=== PATIENT | female | born 1970 | race Caucasian/White ===

== ENCOUNTER 2016-04-11 20:03 | Emergency (ER) | payer MEDICAID ==
[2016-04-11] MEDS ORDERED: BENZONATATE 100 MG CAPSULE PO ONE (20:23)
--- NOTE | 2016-04-11 20:23 | Emergency Department Record ---
History of Present Illness - General Chief Complaint: Cough Stated Complaint: COUGH Time Seen by Provider: 04/11/16 20:16 Source: Patient Mode of Arrival: Ambulatory Limitations: No limitations - History of Present Illness Initial Comments: 45 yo female presents with a cough for about 2 weeks. The cough is worsening at this time. No fevers. She has sinus pressure and discolored sinus drainage. The cough is non productive. She is a smoker. No history of asthma. No sore throat. MD Complaint: Cough Onset/Timin -: Days(s) Severity scale (1-10): 8 Consistency: Constant Improves With: Nothing Worsens With: Other (cough) Associated Symptoms: Cough, Nasal congestion - Related Data Home Medications Medication Instructions Recorded Confirmed Last Taken Multivitamin [Multivitamins] 1 each PO DAILY cap 05/26/15 04/11/16 Unknown Ergocalciferol (Vitamin D2) 3,000 unit PO QOD tab 11/02/15 04/11/16 Unknown [Vitamin D2] Previous Rx's Medication Instructions Recorded Azithromycin [Zithromax] 250 mg PO DAILY #4 tab 04/11/16 Benzonatate [Tessalon] 1 cap PO Q8H PRN #25 cap 04/11/16 Allergies Allergy/AdvReac Type Severity Reaction Status Date / Time Penicillins Allergy Intermediate HIVES Verified 04/11/16 20:07 Travel Screening - Travel/Exposure Within Last 30 Days Have you traveled within the last 30 days?: No - Travel/Exposure Within Last Year Have you traveled outside the [place] in the last year?: No - Additonal Travel Details Have you been exposed to anyone with a communicable illness?: No - Travel Symptoms Symptom Screening: None Review of Systems Constitutional: Denies: Chills, Fever, Malaise, Weakness Eyes: Denies: Eye discharge, Eye pain, Photophobia, Vision change ENT: Reports: Congestion. Denies: Ear pain, Throat pain Respiratory: Reports: Cough. Denies: Dyspnea, Hemoptysis, Stridor, Wheezes Cardiovascular: Denies: Chest pain, Palpitations, Syncope Endocrine: Denies: Fatigue, Polydipsia, Polyuria Gastrointestinal: Denies: Abdominal pain, Diarrhea, Nausea, Vomiting Genitourinary: Denies: Dysuria, Urgency Musculoskeletal: Denies: Arthralgia, Back pain, Myalgia, Neck pain Skin: Denies: Bruising, Change in color, Rash Neurological: Reports: Headache (facial pressure). Denies: Numbness, Tremors, Vertigo, Weakness Psychiatric: Denies: Anxiety Hematological/Lymphatic: Denies: Blood Clots, Easy bleeding, Easy bruising, Swollen glands Past Medical History - SOCIAL HISTORY Smoking Status: Light tobacco smoker (<10/day) Alcohol Use: Rare Drug Use: None - RESPIRATORY Hx Respiratory Disorders: No - CARDIOVASCULAR Hx Cardio Disorders: Yes Comment:: hypercholesteremia - NEURO Hx Neuro Disorders: No - GI Hx GI Disorders: No - Hx Genitourinary Disorders: No - ENDOCRINE Hx Endocrine Disorders: No - MUSCULOSKELETAL Hx Musculoskeletal Disorders: Yes Comment:: degenerative disc disease - PSYCH Hx Psych Problems: No - HEMATOLOGY/ONCOLOGY Hx Hematology/Oncology Disorders: No Family Medical History Any Significant Family History?: No Physical Exam - General General Appearance: Alert, Oriented x3, Cooperative, No acute distress - Head Head exam: Normal inspection - Eye Eye exam: Normal appearance, PERRL. negative: Conjunctival injection - ENT ENT exam: Mucous membranes moist, Normal orophraynx, TM's normal bilaterally. negative: Normal exam Ear exam: Normal external inspection. negative: External canal tenderness Nasal Exam: Discharge, Sinus tenderness. negative: Active bleeding, Dried blood Mouth exam: Normal external inspection, Tongue normal Teeth exam: Normal inspection. negative: Dental caries Throat exam: Normal inspection. negative: Tonsillar erythema, Tonsillar exudate - Neck Neck exam: Normal inspection, Full ROM. negative: Lymphadenopathy, Tenderness - Respiratory Respiratory exam: Normal lung sounds bilaterally. negative: Respiratory distress - Cardiovascular Cardiovascular Exam: Regular rate, Normal rhythm, Normal heart sounds - GI/Abdominal GI/Abdominal exam: Soft - Rectal Rectal exam: Deferred - exam: Deferred - Extremities Extremities exam: Normal inspection, Full ROM, Normal capillary refill. negative: Tenderness - Back Back exam: Reports: Normal inspection, Full ROM. Denies: Muscle spasm, Rash noted, Tenderness - Neurological Neurological exam: Alert, Normal gait, Oriented X3 - Psychiatric Psychiatric exam: Normal affect, Normal mood. negative: Agitated, Anxious - Skin Skin exam: Dry, Intact, Normal color, Warm Course Vital Signs 04/11/16 20:07 Temperature 98.7 F Pulse Rate 110 H Respiratory 20 Rate Blood Pressure 142/97 Pulse Ox 95 - Reevaluation(s) Reevaluation #1: The prelim CXR read reviewed by me is negative for acute process The influenza is negative She will be placed on Zithromax and Tessalon for home She was encourage to call her PCP tomorrow for close follow up 04/11/16 20:51 Disposition Disposition: Discharge Clinical Impression: Bronchitis Sinusitis Qualifiers: Sinusitis location: frontal Chronicity: acute Recurrence: not specified as recurrent Qualified Code(s): J01.10 - Acute frontal sinusitis, unspecified Disposition: Home, Self-Care Condition: (1) Good Instructions: Acute Bronchitis (ED), Sinusitis (ED) Additional Instructions: Call your doctor tomorrow for close follow up Return if worse, fever, short of breath Prescriptions: Benzonatate [Tessalon] 1 cap PO Q8H PRN #25 cap PRN Reason: Cough Azithromycin [Zithromax] 250 mg PO DAILY #4 tab Forms: Patient Portal Access Time of Disposition: 20:54
[2016-04-11 20:36] LABS: INFLUENZA A NEGATIVE (NEGATIVE); INFLUENZA B NEGATIVE (NEGATIVE)
[2016-04-11] MEDS ORDERED: AZITHROMYCIN 500 MG TABLET PO ONE (20:50)
--- NOTE | 2016-04-13 16:44 | RADIOLOGY REPORT ---
EXAM: CHEST 2 VIEWS HISTORY: COUGH FOR TWO WEEKS. TECHNIQUE: Upright PA and lateral views of the chest. COMPARISON: None. FINDINGS: The cardiomediastinal silhouette is normal in size and configuration. The pulmonary vasculature is nondilated. The lungs and pleural spaces appear clear. There are mild degenerative endplate changes within the thoracic spine. IMPRESSION: NO RADIOGRAPHIC EVIDENCE OF ACUTE CARDIOPULMONARY DISEASE. JOB NUMBER: [id number] [facility]
== END 2016-04-11 21:12 | disposition home or self-care (01) ==
LOC: ER 20:03
DX: J20.9 Acute bronchitis, unspecified (principal); J01.10 Acute frontal sinusitis, unspecified; F17.210 Nicotine dependence, cigarettes, uncomplicated
CPT/HCPCS: 71020; 87400; 99283

== ENCOUNTER 2018-08-20 12:44 | Emergency (ER) | payer OTHER ==
--- NOTE | 2018-08-20 12:58 | Emergency Department Record ---
History of Present Illness - General Chief Complaint: Shortness of breath Stated Complaint: MIGDALIA Time Seen by Provider: 08/20/18 12:56 Source: Patient Mode of Arrival: Ambulatory Limitations: No limitations - History of Present Illness Initial Comments: The patient is here due to a 7 day hx of cough, congestion, and mild SOB. She denies any sputum production, fever, chills, or any CP. The patient states the coughing seems to be worse at night. MD Complaint: Cough, Shortness of breath Onset/Timin -: Week(s) Severity scale (1-10): 7 Quality: Aching Consistency: Constant Improves With: Nothing Worsens With: Coughing Associated Symptoms: Cough Treatments Prior to Arrival: None - Related Data Home Oxygen Therapy: No Previous Rx's Medication Instructions Recorded Albuterol Sulfate [Proair Hfa] 2 puff IH QID PRN #1 inhaler 08/20/18 Azithromycin [Zithromax] 250 mg PO ASDIR #6 tab 08/20/18 Prednisone [Prednisone 20Mg] 40 mg PO DAILY #10 tab 08/20/18 Allergies Allergy/AdvReac Type Severity Reaction Status Date / Time Penicillins Allergy Intermediate HIVES Unverified 08/13/18 13:11 Travel Screening - Travel/Exposure Within Last 30 Days Have you traveled within the last 30 days?: No Review of Systems Constitutional: Denies: Chills, Fever Eyes: Denies: Eye discharge ENT: Reports: Congestion Respiratory: Reports: Cough, Dyspnea. Denies: Hemoptysis Cardiovascular: Denies: Chest pain Past Medical History - SOCIAL HISTORY Smoking Status: Light tobacco smoker (<10/day) - RESPIRATORY Hx Respiratory Disorders: No - CARDIOVASCULAR Hx Cardio Disorders: Yes Comment:: hypercholesteremia - NEURO Hx Neuro Disorders: No - GI Hx GI Disorders: No - Hx Genitourinary Disorders: No - ENDOCRINE Hx Endocrine Disorders: No - MUSCULOSKELETAL Hx Musculoskeletal Disorders: Yes Comment:: degenerative disc disease - PSYCH Hx Psych Problems: No - HEMATOLOGY/ONCOLOGY Hx Hematology/Oncology Disorders: No Family Medical History Any Significant Family History?: No Physical Exam - General General Appearance: Alert, Oriented x3, Cooperative, No acute distress - Head Head exam: Atraumatic, Normocephalic, Normal inspection - Eye Eye exam: Normal appearance, PERRL - ENT Throat exam: Normal inspection. negative: Tonsillar erythema, Tonsillar exudate - Neck Neck exam: Normal inspection, Full ROM. negative: Tenderness - Respiratory Respiratory exam: Normal lung sounds bilaterally. negative: Rales, Respiratory distress, Rhonchi, Stridor, Wheezes - Cardiovascular Cardiovascular Exam: Regular rate, Normal rhythm, Normal heart sounds - GI/Abdominal GI/Abdominal exam: Soft, Normal bowel sounds. negative: Rebound, Rigid, Tenderness - Extremities Extremities exam: Normal inspection, Full ROM, Normal capillary refill. negative: Tenderness Course Vital Signs 08/20/18 12:47 Temperature 98.0 F Pulse Rate 89 Respiratory 18 Rate Blood Pressure 134/88 Pulse Ox 98 - Reevaluation(s) Reevaluation #1: The patient is doing well at this time. She is resting comfortably in no distress. She is still coughing with clear lungs. I did discuss the neg CXR and the need for the oral Abx's, inhaller and oral steroids. 08/20/18 13:43 Reevaluation #2: The patient did become visibly angry at discharge due to NOT receive Phenergan with codeine. I did explain to her that I do not provide that medicine and she should see her PCP for it. 08/20/18 14:45 Medical Decision Making - Data Complexity MDM Data: X-Ray Ordered and/or Reviewed - Radiology Data Radiology results: Report reviewed (CXR: Neg.) Disposition Disposition: Discharge Clinical Impression: Bronchitis Disposition: Home, Self-Care Condition: (2) Stable Instructions: Acute Bronchitis (ED), Bronchospasm (ED) Additional Instructions: Please use the OTC cough and cold medicine along with the Zpak, Albuterol and prednisone. Please see your family doctor for recheck in 2-3 days if not better and return to the ER for any worsening symptoms. Prescriptions: Prednisone [Prednisone 20Mg] 40 mg PO DAILY #10 tab Albuterol Sulfate [Proair Hfa] 2 puff IH QID PRN #1 inhaler PRN Reason: Cough And Difficulty Breathing Azithromycin [Zithromax] 250 mg PO ASDIR #6 tab Forms: Patient Portal Access Time of Disposition: 13:46 Quality - Quality Measures Quality Measures: N/A - Blood Pressure Screening View Details: Yes Does Patient Have Any of the Following: No Blood Pressure Classification: Pre-Hypertensive BP Reading Systolic Measurement: 134 Diastolic Measurement: 88 Screening for High Blood Pressure: < Pre-Hypertensive BP, F/U Documented > [G8950] Pre-Hypertensive Follow-up Interventions: Referral to alternative/primary care provider.
[2018-08-20] MEDS ORDERED: ALBUTEROL SULFATE (0.083%) 2.5 MG/3 ML NEB INH ONE (13:01)
--- NOTE | 2018-08-22 19:00 | RADIOLOGY REPORT ---
EXAM: CHEST 2 VIEWS HISTORY: WORSENING DIFFICULTY IN BREATHING FOR ONE WEEK. DRY COUGH. TECHNIQUE: Upright PA and lateral views of the chest. COMPARISON: Two-view chest radiographic examination dated 04/11/2016. FINDINGS: The cardiomediastinal silhouette is normal in size and configuration. The pulmonary vasculature is nondilated. The lungs are symmetrically inflated. No confluent airspace opacity is seen, nor is there costophrenic angle blunting or pneumothorax. Post cholecystectomy changes are suggested. No acute osseous abnormality. Mild degenerative endplate changes scattered within the thoracic spine. IMPRESSION: NO EVIDENCE OF ACUTE CARDIOPULMONARY DISEASE. JOB NUMBER: [id number] [facility]
== END 2018-08-20 13:53 | disposition home or self-care (01) ==
LOC: ER 12:44
DX: J20.9 Acute bronchitis, unspecified (principal); R06.02 Shortness of breath; F17.210 Nicotine dependence, cigarettes, uncomplicated
CPT/HCPCS: 71046; 94640; 99283; 99284; J7613

== ENCOUNTER 2019-01-22 19:04 | Emergency (ER) | payer OTHER ==
--- NOTE | 2019-01-22 19:20 | Emergency Department Record ---
History of Present Illness - General Chief Complaint: Hypertension Stated Complaint: high blood pressure,diziness,swell hands,back pain Time Seen by Provider: 01/22/19 19:13 Source: Patient Mode of Arrival: Ambulatory Limitations: No limitations - History of Present Illness Initial Comments: 48 yo female presents to ED for evaluation of elevated blood pressure at home associated with dizziness, feels light headed, and reports pain in the thoracic back that radiates to the chest. Patient denies difficulty in breathing, calf pain, or history of DVT. Patient denies history of heart or lung problems at her baseline, and denies history of early CAD in her parents or other family members. MD Complaint: Lightheadedness Onset/Timin -: Days(s) Timing: Gradual onset Description: Lightheadedness History of Same: Yes History of Trauma: No Severity: Moderate Improves With: Nothing Associated Symptoms: Other - [place] Coma Scale Eye Response: (4) Open spontaneously Motor Response: (6) Obeys commands Verbal Response: (5) Oriented [place] Total: 15 - Related Data Allergies Allergy/AdvReac Type Severity Reaction Status Date / Time Penicillins Allergy Intermediate HIVES Unverified 11/12/18 15:36 Travel Screening - Travel/Exposure Within Last 30 Days Have you traveled within the last 30 days?: No - Travel Symptoms Symptom Screening: None Review of Systems Constitutional: Denies: Chills, Fever, Malaise, Night sweats Eyes: Denies: Eye discharge, Eye pain ENT: Denies: Congestion, Ear pain, Epistaxis Respiratory: Denies: Cough, Dyspnea Cardiovascular: Denies: Chest pain, Dyspnea on exertion Endocrine: Denies: Fatigue, Heat or cold intolerance Gastrointestinal: Denies: Abdominal pain, Nausea, Vomiting Genitourinary: Denies: Incontinence, Retention Musculoskeletal: Reports: Back pain. Denies: Arthralgia, Other Skin: Denies: Bruising, Change in color Neurological: Denies: Abnormal gait, Confusion, Headache, Numbness, Tingling, Tremors Psychiatric: Denies: Anxiety Hematological/Lymphatic: Denies: Anemia, Blood Clots Past Medical History - SOCIAL HISTORY Smoking Status: Light tobacco smoker (<10/day) - RESPIRATORY Hx Respiratory Disorders: No - CARDIOVASCULAR Hx Cardio Disorders: Yes Comment:: hypercholesteremia - NEURO Hx Neuro Disorders: No - GI Hx GI Disorders: No - Hx Genitourinary Disorders: No - ENDOCRINE Hx Endocrine Disorders: No - MUSCULOSKELETAL Hx Musculoskeletal Disorders: Yes Comment:: degenerative disc disease - PSYCH Hx Psych Problems: No - HEMATOLOGY/ONCOLOGY Hx Hematology/Oncology Disorders: No Physical Exam - General General Appearance: Alert, Oriented x3, Cooperative, Mild distress Limitations: No limitations - Head Head exam: Atraumatic, Normocephalic, Normal inspection Head exam detail: negative: Abrasion, Contusion, Guthrie's sign, General tenderness, Hematoma, Laceration - Eye Eye exam: Normal appearance. negative: Conjunctival injection, Periorbital swelling, Periorbital tenderness, Scleral icterus - ENT Ear exam: negative: Auricular hematoma, Auricular trauma Nasal Exam: negative: Active bleeding, Discharge, Dried blood, Foreign body Mouth exam: negative: Drooling, Laceration, Muffled voice, Tongue elevation - Neck Neck exam: Normal inspection. negative: Meningismus, Tenderness - Respiratory Respiratory exam: Normal lung sounds bilaterally. negative: Respiratory distress, Rhonchi, Stridor, Wheezes - Cardiovascular Cardiovascular Exam: Regular rate, Normal rhythm, Normal heart sounds - GI/Abdominal GI/Abdominal exam: Soft. negative: Rebound, Rigid, Tenderness - Rectal Rectal exam: Deferred - exam: Deferred - Extremities Extremities exam: Normal inspection. negative: Pedal edema, Tenderness - Back Back exam: Denies: CVA tenderness (R), CVA tenderness (L) - Neurological Neurological exam: Alert, Normal gait, Oriented X3 - Psychiatric Psychiatric exam: Normal affect, Normal mood - Skin Skin exam: Normal color. negative: Abrasion Type of lesion: negative: abrasion Course Vital Signs 01/22/19 19:10 Pulse Rate 110 H Respiratory 20 Rate Pulse Ox 97 - Reevaluation(s) Reevaluation #1: 01/22/19 19:38 EKG: NSR 90 Normal axis, normal intervals No acute ST-T wave changes Laboratory studies were reviewed and appear grossly unremarkable for an acute process. Reevaluation #2: 01/22/19 19:44 Previous records were reviewed: Previous exercise stress test 06/11/14 was reviewed and appears negative for myocardial ischemia 23-hour Holter Monitor was reviewed: 01/04/17 Underlying sinus rhythm with PACs, occasional sinus tachycardia. Reevaluation #3: 01/22/19 20:19 CTA Chest/Abdomen/Pelvis: Mild aortic calcification, no aneurysm or dissection No PE No acute process abdomen or pelvis Mild degenerative changes L5/S1 MDM: The patient was deemed to be low-risk for cardiac disease based on the patients history and evaluation in the ED, HEART Score was applied and found to be 2. As a result, repeat Troponin in 3-hours appears appropriate and if negative for myocardial injury, the patient may be discharged home with appropriate out patient follow-up for further evaluation. Reevaluation #4: 01/22/19 22:43 Repeat troponin is negative for myocardial injury. Patient appears stable for discharge at this time with outpatient cardiac follow-up. Medical Decision Making - Lab Data Result diagrams: 01/22/19 19:15 01/22/19 19:15 Disposition Disposition: Discharge Clinical Impression: Atypical chest pain Hypertension Qualifiers: Hypertension type: unspecified Qualified Code(s): I10 - Essential (primary) hypertension Disposition: Home, Self-Care Condition: (2) Stable Instructions: Hypertension (ED) Additional Instructions: Return to ED if your symptoms worsen or if you have any concerns. Follow-up with [facility] in 3-5 days as directed. Forms: Patient Portal Access Time of Disposition: 22:44 Quality - Quality Measures Quality Measures: N/A - Blood Pressure Screening Does Patient Have Any of the Following: Active Dx of HTN Blood Pressure Classification: Hypertensive Reading Systolic Measurement: 166 Diastolic Measurement: 108 Screening for High Blood Pressure: Patient Exclusion, Hx of HTN [G9744]
[2019-01-22 19:21] LABS: ABSOLUTE NEUTROPHIL COUNT 4.96; BASO % 0.9 % (0-6); EOS % 2.6 % (0-6); GRAN % 48.2 % (47-80); HEMATOCRIT 42.6 % (35.0-47.0); HEMOGLOBIN 14.2 gm/dl (11.6-16.0); LYMPH % 41.9 % (16-45); MEAN CELL VOLUME 84.7 fl (81-97); MEAN CORPUSCULAR HEMOGLOBIN 28.2 pg (27-33); MEAN CORPUSCULAR HGB CONC 33.3 g/dl (32-36); MEAN PLATELET VOLUME 9.2 fl (7.4-10.4); MONO % 6.4 % (0-9); PLATELET COUNT 289 K/uL (130-400); RED BLOOD COUNT 5.03 M/uL (3.80-5.40); RED CELL DISTRIBUTION WIDTH 13.6 % (11.5-14.5); WHITE BLOOD COUNT W/O DIFF 10.3 K/uL (4.2-12.2)
[2019-01-22 19:35] LABS: BLOOD UREA NITROGEN 14 mg/dL (6-20); CREATININE 0.7 mg/dL (0.5-0.9); EST GLOMERULAR FILTRATION RATE > 60 mL/min
[2019-01-22 19:36] LABS: TOTAL PROTEIN 7.1 g/dL (6.6-8.7)
[2019-01-22 19:38] LABS: GLUCOSE,RANDOM 139 mg/dL (74-109)
[2019-01-22 19:41] LABS: ALB/GLOB RATIO 1.8 (1.1-1.8); ALBUMIN 4.6 g/dL (4.0-5.0); ALKALINE PHOSPHATASE 105 U/L (35-104); ALT/SGPT 17 U/L (<33); AST/SGOT 14 U/L (10.0-35.0)
--- NOTE | 2019-01-22 20:16 | CT ANGIOGRAM REPORT ---
EXAMINATION: CT Angiography Chest, Abdomen and Pelvis EXAM DATE: 01/22/2019 7:55 PM TECHNIQUE: ECG Gating: No. Thin spiral CT images were done from the lung apices through the ischial tuberosities during rapid infusion of intravenous contrast. MIP 3-D reconstructions were performed. IV Contrast: The amount and type of contrast are recorded in the medical record. INDICATION: Hypertension, back pain. COMPARISON: Chest x-ray 08/20/2018 ENCOUNTER: Not applicable VASCULAR FINDINGS: Thoracic aorta: The thoracic aorta has a normal caliber. There is no dissection or acute abnormality . Mild calcification. Noncontrast images reveal no intramural hematoma of the aorta. Branching pattern of aortic arch: Bovine configuration of the aortic arch. Great vessels are patent. Abdominal Aorta: No abdominal aortic aneurysm or dissection. Mild calcification. Celiac Artery: Normal caliber. No significant stenosis. SMA: Normal caliber. No significant stenosis. POLO: Normal caliber. No significant stenosis. Renal arteries: 2 right renal arteries which are widely patent. Solitary left renal artery is patent. Iliac Arteries: No dissection, aneurysm or stenosis is present. Common Femoral Arteries: No stenosis CT CHEST FINDINGS: Base of Neck & Axillae: There is no adenopathy. Mediastinum & Emerita: There is no mediastinal or hilar adenopathy. Cardiovascular: The heart has a normal size. There is no pericardial effusion. Mild coronary artery c alcification. There is no evidence for right heart strain. Pulmonary Arteries: No pulmonary embolism is present. Tracheobronchial Structures: There is no bronchial wall thickening or bronchiectasis. Lung Parenchyma: The lungs are clear. Pleural Space: There are no pleural effusions. There is no pneumothorax. Chest Wall & Musculoskeletal: No suspicious bone lesions CT ABDOMEN AND PELVIS FINDINGS: Hepatobiliary: The liver has a normal size with a smooth surface. The hepatic and portal veins appear patent. The gallbladder is absent. Pancreas: The pancreas is normal. Spleen: The spleen is not enlarged. Adrenals: The adrenal glands are normal. Kidneys, Ureters, & Bladder: Both kidneys have a normal size and there is no hydronephrosis. Both ur eters have a normal caliber and the urinary bladder is unremarkable. Gastrointestinal: The stomach and small bowel are normal with no obstruction or inflammation. Normal appendix. Rare colonic diverticula. Reproductive Organs: The uterus is absent. Lymphatic System: There is no adenopathy within the abdomen or pelvis. Peritoneum: No free fluid, free air, or inflammation Abdominal Wall & Musculoskeletal: No suspicious bone lesions. No acute fracture. Moderate degenerativ e disc disease at L5-S1. Assessment of the solid organs, soft tissues, and vascular structures is overall limited on the inclu ded early arterial phase images. IMPRESSION: 1. Mild aortic calcification with no aneurysm or dissection. 2. No pulmonary embolism. 3. No acute intrathoracic process. No acute process of the abdomen or pelvis. 4. Moderate degenerative disc disease at L5-S1. Dictated by: Bobby Melgar MD on 01/22/2019 8:08 PM. .
== END 2019-01-22 22:55 | disposition home or self-care (01) ==
LOC: ER 19:04
DX: R07.89 Other chest pain (principal); I10 Essential (primary) hypertension; R42 Dizziness and giddiness; R51 Headache; F17.210 Nicotine dependence, cigarettes, uncomplicated
CPT/HCPCS: 71275; 74174; 80053; 84484; 85025; 99284